=== PATIENT | male | born 1955 | race African-American/Black ===

== ENCOUNTER 2016-07-12 22:43 | Emergency (ER) | payer OTHER ==
--- NOTE | ~2016-07-12 | CR230 ---
[facility] A Service [facility] RADIOLOGY TEXT RESULTS PATIENT: HANNA HOPSON LOCATION: [place] : 57 UNIT #: [id number] AGE: [address]: MIKEL UMANA APRN SEX: M ORDER DR: [id number] [place], [place] [address] [id number] MR#: [id number] Acc #: [id number] NAME: HANNA HOPSON : 1955 SEX: M STUDY DATE/TIME: 07/12/2016 22:40 UNIT: [facility] ROOM: STUDY DESCRIPTION: CR Shoulder Min 2 View Rt Attending Physician: Mikel Umana Aprn Ordering Physician: Mikel Umana Aprn Primary Care Physician: Tomas Weiss M.D. MEDICAL IMAGING REPORT This report is preliminary unless electronic signature is present EXAM Right shoulder, 2 views COMPARISON None. INDICATION 61-year-old male with right shoulder pain today. No known injury. FINDINGS There is mild multilevel uncinate hypertrophy of the lower cervical spine and there is likely degenerative facet disease on the right at C5-C6. The right shoulder is anatomically aligned. No evidence of acute fracture or significant degenerative change at the right shoulder. IMPRESSION 1. No acute fracture, dislocation or significant degenerative change of the right shoulder. 2. Degenerative changes of the lower right cervical spine. Dictated by... Jose Bee M.D. THIS IS AN ELECTRONICALLY VERIFIED REPORT Jose Bee M.D. at 07/16/2016 8:06 PM BRE/geoffrey TD: 07/13/2016 07:09 [facility] A Service [facility] RADIOLOGY TEXT RESULTS PATIENT: HANNA HOPSON LOCATION: [place] : 57 UNIT #: [id number] AGE: [address]: MIKEL UMANA APRN SEX: M ORDER DR: ADIS #: [id number] MEDICAL IMAGING REPORT Page 1 of 1 COPY
[~2016-07-12 22:43] MED LIST: ALLOPURINOL300 MG PO; CLONIDINE HCL0.1 MG PO; HYDROCHLOROTHIA25 MG PO; LISINOPRIL-HCTZ1 T21 PO; NORVASC PO
== END 2016-07-13 00:24 | disposition home or self-care (01) ==
LOC: CFTX 22:43
DX: G89.29 Other chronic pain (principal); M25.511 Pain in right shoulder; E78.5 Hyperlipidemia, unspecified; I10 Essential (primary) hypertension; G45.9 Transient cerebral ischemic attack, unspecified; M10.9 Gout, unspecified; F17.200 Nicotine dependence, unspecified, uncomplicated
CPT/HCPCS: 73030; 99283; J1885